=== PATIENT | male | born 1945 ===

== ENCOUNTER → 2022-11-20 12:23 | Outpatient (REF) | payer MEDICARE, OTHER, SELFPAY ==
--- NOTE | 2022-11-20 12:30 | CA_ITS ---
Transthoracic Echocardiogram Patient (Last, First, Middle): Luis Andersen, Gender: Male Date of : 1945 Age: 76 Procedure Date: 11/20/2022 Procedure Type: Transthoracic Echocardiogram Location: OP Height: 170.18 cm Weight: 72.58 kg BSA: 1.84 m2 Heart Rate: bpm BP: 144 / 80 mmHg Industrial Technology Teacher: SB Referring MD: Pito Steward MD Athletic Scout: Fuentes Villa MD Symptoms: I46.91 UNSPECIFIED ATRIAL FIBRILLATION Study Quality: Adequate ECG Rhythm: Atrial Fibrillation Conclusions: - Essentially normal study Findings Left Ventricle Normal left ventricular size, thickness, and systolic function. The visually estimated ejection fraction is between 60-65%. Diastolic function is indeterminate on the basis of available data. Right Ventricle Normal right ventricular cavity size and systolic function. Atria Both atria are normal in size. Interatrial shunt cannot be excluded. Aortic Valve Normal aortic valve structure and function. There is no aortic valve stenosis. There is no aortic valve regurgitation. Mitral Valve Normal mitral valve structure and function. There is no mitral valve regurgitation. There is no mitral valve stenosis. Pulmonic Valve The pulmonic valve is likely normal. There is no pulmonic valve regurgitation. Tricuspid Valve Normal tricuspid valve structure. There is trace tricuspid valve regurgitation. The right ventricular systolic pressure is normal. The right ventricular systolic pressure is 21 mmHg. Normal right atrial pressure. There is no evidence of pulmonary hypertension. Great Vessels All visible segments of the aorta are normal in size. The pulmonary artery was not well visualized. Venous The inferior vena cava is normal in size and collapses greater than 50% with inspiration. Pericardium/Pleural There is no evidence of pericardial effusion. Prior Study Comparison No prior study available for comparison. Measurements 2D Linear Measurements IVSd: 1.10 0.6-0.9/0.6-1.0 cm LVIDd: 4.16 3.9-5.3/4.2-5.9 cm LVIDd Index: 2.26 2.4-3.2/2.2-3.1 cm/m2 LVIDs: 2.86 2.0-3.6 cm LVPWd: 0.81 0.7-1.1 cm LA Diam: 3.30 2.7-3.8/3.0-4.0 cm LAIDs Index: 1.79 1.5-2.3 cm/m2 LV Mass: 157.72 67-162/88-224 g LV Mass Index: 85.72 43-95/49-115 g/m2 LVOT Diam: 2.10 3.0+(-)1.3 cm 2D Systolic Function EF 4C: 54.60 >55% EF 2C: 66.30 >55% EF BiP: 60.80 >55% Mitral Valve MV Pk E: 0.86 E'Lateral: 9.84 E'Medial: 10.20 E/E' Med: 8.40 E/E' Lat: 8.70 Aortic Valve AoV Pk Lencho: 0.95 AoV Pk Grad: 4.00 NERI: 2.41 LVOT LVOT Pk Lencho: 0.66 LVOT Mn Lencho: 0.51 LVOT VTI: 0.15 LVOT Pk Grad: 2.00 LVOT Mn Grad: 1.00 LVOT Diam: 2.10 LVOT Area: 3.46 Diastolic Function MV Pk E: 0.86 E'Medial: 10.20 E/E' Med: 8.40 E' Laterial: 9.84 E/E' Lat: 8.70 Right Ventricle TAPSE (mm): 17.10 TVS' Lencho: 11.40 Tricuspid Valve TR Pk Lencho: 2.14 TR Pk Grad: 18.00 RA Press: 3.00 RVSP: 21.00 Great Vessels Aorta Sinus of Valsalva: 3.30 2.0-3.5 cm Ao Asc: 4.00 2.1-3.4 cm Pulmonary Valve PV Pk Lencho: 1.31 Peak PV Grad: 7.00 Updated in Other Vendor System with Status of Final Fuentes Villa MD electronically signed on 11/20/2022 2:16:23 PM with status of Final
== END ==
LOC: HO.CARD 12:23
PROVIDERS: PCP Emergency Medicine; Visit Provider Emergency Medicine
DX: I48.91 Unspecified atrial fibrillation (principal)
CPT/HCPCS: 93306

== ENCOUNTER → 2022-11-20 12:30 | Outpatient (BNV) | payer MEDICARE, OTHER, SELFPAY | PROVIDERS: PCP Emergency Medicine; Visit Provider Internal Medicine Cardiovascular Disease | DX: I48.91 Unspecified atrial fibrillation (principal) | CPT/HCPCS: 93306 ==